=== PATIENT | male | born 1955 | race Caucasian/White ===

== ENCOUNTER 2023-12-13 10:26 | Emergency (ER) | payer MEDICARE ==
[~2023-12-13] VITALS: Ht 185.4 cm; Wt 80.0 kg
[2023-12-13] VITALS (11 sets, daily range): BP systolic 142–158; BP diastolic 94–104
[~2023-12-13 10:26] MED LIST: ATENOLOL50 MG PO; CEFEPIME2 GM IM; CEFEPIME2 GM IV; CRESTOR20 MG PO; NORVASC PO; PROTONIX40 M2 PO; SOLIFENACIN SUC10 MG PO; TAMSULOSIN0.4 MG PO; ZOFRAN4 MG/TAB PO
[2023-12-13 11:29] LABS: BASO% 0.2 % (0-3); HEMATOCRIT 47.4 % (39.0-50.0); HEMOGLOBIN 14.6 g/dl (14.0-18.0); IMMATURE GRANULOCYTES 0.4 % (0.0-5.0); LYMPH% 13.1 % (15-41); MEAN CELL VOLUME 90.1 fL CALC (80.0-100.0); MEAN CORPUSCULAR HGB 27.8 pG CALC (26.0-32.0); MEAN CORPUSCULAR HGB CONC 30.8 g/dL CAL (32.0-36.0); MONO% 7.8 % (2-13); NEUT# 6.5 thou/uL (1.82-7.42); NEUT% 77.5 % (42-76); RED BLOOD COUNT 5.26 mill/uL (4.70-6.10); RED CELL DISTRI WIDTH 14.8 % (11.5-15.5)
[2023-12-13 11:39] LABS: URINE BILIRUBIN - DIPSTICK Negative (NEGATIVE); URINE BLOOD DIPSTICK Large (NEGATIVE); URINE GLUCOSE - DIPSTICK Negative (NEGATIVE); URINE KETONE Negative (NEGATIVE); URINE NITRITE - DIPSTICK Negative (Negative); URINE PH 5.5 (4.5-8.0); URINE PROTEIN - DIPSTICK 100 mg/dL (NEG-TRACE); URINE SPECIFIC GRAVITY 1.015; URINE UROBILINOGEN - DIPSTICK 0.2 E.U./dL (0.2)
[2023-12-13 11:40] LABS: URINE COLOR Yellow; URINE LEUK ESTERASE Moderate (NEGATIVE)
[2023-12-13 11:41] LABS: URINE BACTERIA FEW hpf; URINE WBC 20-50 WBC/hpf (0-5)
[2023-12-13 11:46] LABS: ALBUMIN 4.4 g/dL (3.2-5.0); ALKALINE PHOSPHATASE 122 u/l (38-126); BUN 41 mg/dL (8-23); BUN/CREATININE RATIO 15 (12-20 (CALC)); CARBON DIOXIDE 17 mmol/l (22-30); CHLORIDE 112 mmol/l (95-108); CREATININE 2.8 mg/dL (0.7-1.3); GFR FOR AFR.AMER. 27 ML/MIN (>=60 (CALC)); GFR OTHER RACES 23 ML/MIN (>=60 (CALC)); SGOT/AST 37 u/l (19-48); TOTAL PROTEIN 8.9 g/dL (6.3-8.2)
[2023-12-13 11:57] LABS: ANION GAP 17 (6-22 (CALC)); SODIUM 142 mmol/l (137-146)
[2023-12-13] MEDS ORDERED: PROMETHAZINE HY25 M1 PO (13:33)
== END 2023-12-13 13:50 | disposition home or self-care (01) ==
LOC: ED 10:26
PROVIDERS: Family Medicine
DX: U07.1 COVID-19 (principal); R11.2 Nausea with vomiting, unspecified; R63.0 Anorexia; R00.2 Palpitations; N39.0 Urinary tract infection, site not specified; I12.9 Hypertensive chronic kidney disease with stage 1 through stage 4 chronic kidney disease, or unspecified chronic kidney disease; N18.9 Chronic kidney disease, unspecified; Z87.440 Personal history of urinary (tract) infections

== ENCOUNTER 2024-01-04 13:32 | Inpatient (IN) | payer MEDICARE ==
[~2024-01-04] VITALS: Ht 210.8 cm; Wt 78.2 kg
[2024-01-04] VITALS (14 sets, daily range): BP systolic 111–136; BP diastolic 67–103
[~2024-01-04 13:32] MED LIST changes: +PROMETHAZINE HY25 M1 PO
[2024-01-04] MEDS ORDERED: SODIUM CHLORIDE 0.9% 1,000 ML IV ONE (16:00)
[2024-01-04 16:33] LABS: BASO% 0.2 % (0-3); EOS% 2.2 % (0-8); HEMATOCRIT 43.4 % (39.0-50.0); HEMOGLOBIN 14.3 g/dl (14.0-18.0); LYMPH% 8.6 % (15-41); MEAN CELL VOLUME 84.8 fL CALC (80.0-100.0); MEAN CORPUSCULAR HGB 27.9 pG CALC (26.0-32.0); MEAN CORPUSCULAR HGB CONC 32.9 g/dL CAL (32.0-36.0); MONO% 4.7 % (2-13); NEUT# 10.22 thou/uL (1.82-7.42); NEUT% 73.9 % (42-76); RED BLOOD COUNT 5.12 mill/uL (4.70-6.10); RED CELL DISTRI WIDTH 16.4 % (11.5-15.5)
[2024-01-04 16:49] LABS: ALBUMIN 4.3 g/dL (3.2-5.0); TOTAL PROTEIN 8.9 g/dL (6.3-8.2)
[2024-01-04 16:50] LABS: IMMATURE GRANULOCYTES 10.4 % (0.0-5.0)
[2024-01-04 16:54] LABS: CREATININE 8.4 mg/dL (0.7-1.3); POTASSIUM 5.5 mmol/l (3.5-5.1)
[2024-01-04 17:03] LABS: URINE BILIRUBIN - DIPSTICK Negative (NEGATIVE); URINE BLOOD DIPSTICK Large (NEGATIVE); URINE GLUCOSE - DIPSTICK Negative (NEGATIVE); URINE KETONE Trace mg/dL (NEGATIVE); URINE NITRITE - DIPSTICK Negative (Negative); URINE PH 5.5 (4.5-8.0); URINE PROTEIN - DIPSTICK 100 mg/dL (NEG-TRACE); URINE UROBILINOGEN - DIPSTICK 0.2 E.U./dL (0.2)
[2024-01-04 17:04] LABS: URINE COLOR Yellow; URINE LEUK ESTERASE Large (NEGATIVE)
[2024-01-04] MEDS ORDERED: DEXTROSE 10% 500 ML BAG IV ONE (17:05)
[2024-01-04] MEDS ORDERED: INSULIN REGULAR (HUMAN) 100 UNIT/ML INJ IV ONE (17:05)
[2024-01-04] MEDS ORDERED: MAGNESIUM HYDROXIDE 30 ML UDC PO PRN (18:00)
[2024-01-04] MEDS ORDERED: SODIUM CHLORIDE 0.9% 1,000 ML IV PRN (18:00)
[2024-01-04] MEDS ORDERED: ONDANSETRON HCl 4 MG/2 ML SDV IV PRN (18:00)
[2024-01-04] MEDS ORDERED: ACETAMINOPHEN 325 MG/TAB PO PRN (18:00)
[2024-01-04] MEDS ORDERED: SODIUM BICARBONATE 150 ML in DEXTROSE 5% 850 ML IV PRN (18:20)
[2024-01-04] MEDS ORDERED: SODIUM ZIRCONIUM CYCLOSILICATE 10 GM PAK PO SCH (18:50)
[2024-01-04] MEDS ORDERED: PROCHLORPERAZINE5 M1 PO (19:02)
[2024-01-04] MEDS ORDERED: Heparin SODIUM (Porcine) 5,000 UNITS/ML SDV SC SCH (19:50)
[2024-01-04] MEDS ORDERED: ENOXAPARIN SODIUM 30 MG/0.3 ML INJ SC SCH (21:00)
[2024-01-04] MEDS ORDERED: PROCHLORPERAZINE MALEATE 5 MG/TAB PO PRN (23:45)
[2024-01-05] VITALS (7 sets, daily range): BP systolic 120–135; BP diastolic 67–78
[2024-01-05 06:55] LABS: BASO% 0.2 % (0-3); EOS% 2.3 % (0-8); HEMATOCRIT 38.8 % (39.0-50.0); HEMOGLOBIN 12.9 g/dl (14.0-18.0); LYMPH% 8.7 % (15-41); MEAN CELL VOLUME 84.3 fL CALC (80.0-100.0); MEAN CORPUSCULAR HGB CONC 33.2 g/dL CAL (32.0-36.0); MONO% 6.9 % (2-13); NEUT# 10.05 thou/uL (1.82-7.42); NEUT% 73.4 % (42-76); RED BLOOD COUNT 4.6 mill/uL (4.70-6.10); RED CELL DISTRI WIDTH 16.4 % (11.5-15.5)
[2024-01-05 07:30] LABS: IMMATURE GRANULOCYTES 8.5 % (0.0-5.0)
[2024-01-05 07:38] LABS: ALBUMIN 3.6 g/dL (3.2-5.0); BILIRUBIN, TOTAL 0.8 mg/dL (0.2-1.3); CHOLESTEROL HDL RATIO 6.3 (<4.4 (CALC)); TOTAL PROTEIN 7.3 g/dL (6.3-8.2)
[2024-01-05 07:58] LABS: CREATININE 7.2 mg/dL (0.7-1.3); MAGNESIUM 2.6 mg/dL (1.6-2.3); POTASSIUM 4.3 mmol/l (3.5-5.1)
[2024-01-05] MEDS ORDERED: TAMSULOSIN HCL 0.4 MG CAP PO SCH (08:00)
[2024-01-05] MEDS ORDERED: amLODIPine BESYLATE 5 MG/TAB PO SCH (09:00)
[2024-01-05] MEDS ORDERED: CEFEPIME HYDROCHLORIDE 2 GM in SODIUM CHLORIDE 0.9% 100 ML IV SCH (09:00)
[2024-01-05] MEDS ORDERED: PANTOPRAZOLE SODIUM Sesquihydr 40 MG/TAB PO SCH (09:00)
[2024-01-05] MEDS ORDERED: CLARIFY DOSE PO SCH (09:00)
[2024-01-05] MEDS ORDERED: ALPRAZolam 0.25 MG PO PRN (11:05)
[2024-01-05] MEDS ORDERED: PROCHLORPERAZINE EDISYLATE 10 MG/2 ML SDV IV PRN (11:05)
[2024-01-05] MEDS ORDERED: DEXTROSE 5% 1,000 ML IV ONE (13:45)
[2024-01-05] MEDS ORDERED: ATORVASTATIN CALCIUM 40 MG/TAB PO SCH (21:00)
[2024-01-06 04:06] VITALS: BP 109/67
[2024-01-06 07:16] VITALS: BP 120/72
[2024-01-06 07:29] LABS: HEMATOCRIT 36.2 % (39.0-50.0); HEMOGLOBIN 12.1 g/dl (14.0-18.0); MEAN CELL VOLUME 84.6 fL CALC (80.0-100.0); MEAN CORPUSCULAR HGB 28.3 pG CALC (26.0-32.0); MEAN CORPUSCULAR HGB CONC 33.4 g/dL CAL (32.0-36.0); RED BLOOD COUNT 4.28 mill/uL (4.70-6.10)
[2024-01-06 07:58] LABS: ALBUMIN 3.4 g/dL (3.2-5.0); POTASSIUM 3.7 mmol/l (3.5-5.1)
[2024-01-06 08:23] LABS: CREATININE 5.5 mg/dL (0.7-1.3)
[2024-01-06 20:12] VITALS: BP 121/75
[2024-01-06] MEDS ORDERED: SODIUM CHLORIDE 0.9% 1,000 ML IV SCH (20:55)
[2024-01-07 00:34] VITALS: BP 125/72
[2024-01-07 03:53] VITALS: BP 118/65
[2024-01-07 05:11] LABS: BASO% 0.2 % (0-3); EOS% 2.5 % (0-8); HEMATOCRIT 36.2 % (39.0-50.0); HEMOGLOBIN 12.1 g/dl (14.0-18.0); LYMPH% 10.4 % (15-41); MEAN CELL VOLUME 85.8 fL CALC (80.0-100.0); MEAN CORPUSCULAR HGB 28.7 pG CALC (26.0-32.0); MEAN CORPUSCULAR HGB CONC 33.4 g/dL CAL (32.0-36.0); NEUT# 10.2 thou/uL (1.82-7.42); NEUT% 75.9 % (42-76); RED BLOOD COUNT 4.22 mill/uL (4.70-6.10); RED CELL DISTRI WIDTH 15.7 % (11.5-15.5)
[2024-01-07 05:22] LABS: ALBUMIN 3.3 g/dL (3.2-5.0); BILIRUBIN, TOTAL 0.8 mg/dL (0.2-1.3); POTASSIUM 3.3 mmol/l (3.5-5.1); TOTAL PROTEIN 6.8 g/dL (6.3-8.2)
[2024-01-07 05:25] LABS: CREATININE 4.4 mg/dL (0.7-1.3)
[2024-01-07 06:57] VITALS: BP 137/75
[2024-01-07] MEDS ORDERED: POTASSIUM CHLORIDE 20 MEQ/TAB PO SCH (10:00)
[2024-01-07 10:58] VITALS: BP 129/76
[2024-01-07 15:32] VITALS: BP 116/78
[2024-01-07 19:49] VITALS: BP 125/69
[2024-01-07] MEDS ORDERED: traZODone HCL 50 MG/TAB PO SCH (21:00)
[2024-01-08 00:46] VITALS: BP 144/79
[2024-01-08 04:25] VITALS: BP 132/81
[2024-01-08 04:52] LABS: ALBUMIN 3.3 g/dL (3.2-5.0); MAGNESIUM 1.9 mg/dL (1.6-2.3); TOTAL PROTEIN 6.7 g/dL (6.3-8.2)
[2024-01-08 04:53] LABS: BASO% 0.4 % (0-3); EOS% 1.8 % (0-8); HEMATOCRIT 35.9 % (39.0-50.0); HEMOGLOBIN 11.3 g/dl (14.0-18.0); IMMATURE GRANULOCYTES 2.3 % (0.0-5.0); LYMPH% 8.8 % (15-41); MEAN CELL VOLUME 87.8 fL CALC (80.0-100.0); MEAN CORPUSCULAR HGB 27.6 pG CALC (26.0-32.0); MEAN CORPUSCULAR HGB CONC 31.5 g/dL CAL (32.0-36.0); MONO% 7.7 % (2-13); NEUT# 10.13 thou/uL (1.82-7.42); RED BLOOD COUNT 4.09 mill/uL (4.70-6.10); RED CELL DISTRI WIDTH 15.8 % (11.5-15.5)
[2024-01-08 04:59] LABS: CREATININE 3.4 mg/dL (0.7-1.3); POTASSIUM 4.2 mmol/l (3.5-5.1)
[2024-01-08 07:27] VITALS: BP 125/72
[2024-01-08 07:39] VITALS: BP 125/72
[2024-01-08 10:32] VITALS: BP 143/80
[2024-01-08] MEDS ORDERED: [UNRECOGNIZED DRUG - OTHER] IV (11:16)
[2024-01-08 12:12] VITALS: BP 143/80
== END 2024-01-08 15:01 | disposition home or self-care (01) | DRG 683 ==
LOC: ED 13:32 → ED-I 17:20 → ED 17:44 → MS2 17:45
PROVIDERS: Family Medicine; Internal Medicine Nephrology; Nurse Practitioner Family; ADMIT Student in an Organized Health Care Education/Training Program; ATTEND Student in an Organized Health Care Education/Training Program
PROC: 0T9B7ZZ Drainage of Bladder, Via Natural or Artificial Opening (ICD-10-PCS; principal; 2024-01-04)
PROC: 02HV33Z Insertion of Infusion Device into Superior Vena Cava, Percutaneous Approach (ICD-10-PCS; 2024-01-05)
PROC: B518ZZA Fluoroscopy of Superior Vena Cava, Guidance (ICD-10-PCS; 2024-01-05)
DX: N17.0 Acute kidney failure with tubular necrosis (principal); E87.1 Hypo-osmolality and hyponatremia; E87.20 Acidosis, unspecified; N39.0 Urinary tract infection, site not specified; N18.4 Chronic kidney disease, stage 4 (severe); N13.6 Pyonephrosis; B96.5 Pseudomonas (aeruginosa) (mallei) (pseudomallei) as the cause of diseases classified elsewhere; I12.9 Hypertensive chronic kidney disease with stage 1 through stage 4 chronic kidney disease, or unspecified chronic kidney disease; C67.9 Malignant neoplasm of bladder, unspecified; E87.5 Hyperkalemia; E83.39 Other disorders of phosphorus metabolism; K11.7 Disturbances of salivary secretion; G25.81 Restless legs syndrome; Z85.46 Personal history of malignant neoplasm of prostate; Z87.440 Personal history of urinary (tract) infections; Z92.3 Personal history of irradiation; Z45.2 Encounter for adjustment and management of vascular access device
CPT/HCPCS: J0692